=== PATIENT | female | born 1965 | race African-American/Black ===

== ENCOUNTER 2019-10-07 17:59 | Observation (INO) | payer BC ==
[2019-10-07 18:27] LABS: #Basophils 0.1 thou/uL (0.0-0.2); #Eosinphils 0.2 thou/uL (0.0-0.7); #Lymphocytes 3.2 thou/uL (1.20-3.40); #Monocytes 0.7 thou/uL (0.11-0.59); #Neutrophils 5.8 thou/uL (1.40-6.50); %Basophils 1.2 % (0.0-1.0); %Eosinophils 1.9 % (0.0-10.0); %Monocytes 7.2 % (0.0-10.0); %Neutrophils 57.8 % (42.0-75.0); Mean Corpuscular HGB CONC 33.2 g/dL (32.0-36.0); Mean Corpuscular Hemoglobin 26.8 pg (27.0-31.0); Mean Corpuscular Volume 80.9 fL (78.0-98.0); Platelet Count 306 thou/uL (130-400); RBC Distribution Width 14.6 % (11.5-14.5); Red Blood Cell (RBC) Count 5.21 mill/uL (4.20-5.40)
--- NOTE | 2019-10-07 18:36 | CT ---
BRAIN CT WITHOUT IV CONTRAST: 10/07/19 HISTORY: Right sided facial numbness and right arm numbness, level II stroke. FINDINGS: No focal mass or midline shift. No intra or extra-axial hemorrhage. Sinuses and mastoids are clear. IMPRESSION: No acute intracranial process. Findings discussed with Dr. Menchaca in the Emergency Room at 6:30 p.m. Code CR POS: [facility]
[2019-10-07 18:46] LABS: Anion Gap 10 mmol/L (10-20); BUN (Urea Nitrogen) 14 mg/dL (9.8-20.1); Calc. Creatinine Clearance 0 mL/min (70-130); Calcium 9.5 mg/dL (7.8-10.44); Carbon Dioxide 27 mmol/L (22-29); Chloride 108 mmol/L (98-107); Estimated GFR-MDRD 77; Glucose 88 mg/dL (70-105); Potassium 4.4 mmol/L (3.5-5.1); Sodium 141 mmol/L (136-145)
[2019-10-07] MEDS ORDERED: Aspirin 325 MG TAB ONE (22:06)
[2019-10-07] MEDS ORDERED: Acetaminophen 650 MG Suppository PR PRN (23:37)
[2019-10-07] MEDS ORDERED: Acetaminophen 325 MG TAB PO PRN (23:37)
[2019-10-07 23:39] VITALS: BMI 39.6
--- NOTE | 2019-10-08 00:25 | HP ---
TIME OF ASSESSMENT: 2200 hours. CHIEF COMPLAINT: Right-sided facial numbness and right upper extremity numbness with weakness. HISTORY OF PRESENT ILLNESS: Ms. Doty is a 54-year-old woman, who presents to the emergency department after noting persistent numbness and weakness in her right upper extremity as well as right facial numbness and tingling. The patient states that this started around 11:00 a.m. and persisted throughout the day. She states she was having difficulty holding the string well with both arms due to heaviness and weakness in her right arm and therefore drove with her left hand only. She has noted slight improvement with the numbness and tingling to the right side of her face. Denies any slurred speech. No vision changes, headaches or dizziness. Denies any right lower extremity weakness, numbness, or tingling. States she felt discomfort with contracture in her right index finger. States she had what felt like a charley horse go up through right arm. Discomfort settled but she continued to have dull sensation to the entire right upper extremity. Denies any pain or trauma to her right shoulder or arm. Denies any distant neck pain. States she has never had anything like this before, but concerned over strong family history of strokes in her family. ED COURSE: In the emergency department, she underwent laboratory studies that showed a normal full blood count. Sodium 141, potassium 4.4, BUN 14, creatinine 0.91, GFR 77, glucose 88. Troponin negative. Calcium 9.5. She had a CT of the head done, which showed no acute intracranial process. She had an EKG done showing normal sinus rhythm with a heart rate of 79. The patient admitted for further CVA workup. She was given 325 mg of aspirin in the emergency department. PAST MEDICAL HISTORY: 1. Hypertension. 2. History of anxiety attack in the past. PAST SURGICAL HISTORY: Tubal ligation. SOCIAL HISTORY: The patient denies any tobacco use. Reports occasional alcohol consumption. Denies any drug use. ALLERGIES: NO KNOWN DRUG ALLERGIES. CURRENT MEDICATIONS: Amlodipine 5 mg p.o. b.i.d. PHYSICAL EXAMINATION: GENERAL: The patient appears well developed, well nourished, in no acute distress. VITAL SIGNS: Temperature 98, pulse 67, blood pressure 135/90, respirations 17, O2 saturation 100% on room air. HEENT: Normocephalic and atraumatic. Pupils equal, round, and reactive to light. Sclerae are anicteric. Oropharynx is clear. Extraocular movements intact. NECK: Supple. LUNGS: Clear to auscultation bilaterally without any wheezes, rales, or rhonchi. CARDIAC: Regular rate and rhythm. ABDOMEN: Soft, nontender, and nondistended. Normoactive bowel sounds present. No guarding or rigidity. No renal angle tenderness. EXTREMITIES: No lower leg swelling or edema. NEUROLOGIC: Alert and oriented x3. Facial movements normal. However, she does have reduced sensation on the right side of her face. Speech normal. No tongue deviation. Right upper extremity notable for reduced sensation from the hand all way up to the mid upper arm. Power 4/5 in the right extremity compared to 5/5 in the left upper extremity. Hand distance education director strength minimally reduced in the right hand. Full range of motion at right shoulder joint. No gait disturbances. Lower extremities with normal power and sensation. INVESTIGATIONS: As mentioned above in HPI. IMPRESSION AND PLAN: Ms. Doty is a 54-year-old woman, who is being admitted for management of the following. 1. Cerebrovascular accident rule out. The patient remains symptomatic, though it is slightly improved from earlier today. We will obtain CT angiogram of the head and neck since she is still symptomatic. We will obtain an echo and an MRI. Lipid panel with morning labs. We will continue aspirin 325 mg daily. Consultation placed to neuro: We will continue to monitor the patient. 2. Hypertension. Monitor blood pressure and reconcile home medications once verified. 3. Gastrointestinal prophylaxis with famotidine. 4. Deep venous thrombosis prophylaxis with mechanical SCDs. 5. Code status full. Surrogate decision maker is her son, Vadim Doty. Case was discussed with attending, who agrees upon care as described above. Job ID: [id number]
[2019-10-08 05:52] LABS: Cardiac Risk 3.4 (Less than 4.5)
--- NOTE | 2019-10-08 07:20 | PDOC.HOSPP ---
- Subjective Encounter Date: 10/08/19 Encounter Time: 15:30 Subjective: Patient with resolution of all weakness and numbness except a bit at the fingertips of the right hand. No other complaints. - Objective Vital Signs & Weight: Vital Signs (12 hours) Temp Pulse Resp BP Pulse Ox 10/08/19 03:52 97.4 F L 63 20 139/100 H 99 10/07/19 23:58 97.4 F L 62 20 143/70 H 100 Weight Weight 245 lb 4.8 oz I&O: 10/07/19 10/08/19 10/09/19 06:59 06:59 06:59 Intake Total 600 Balance 600 Result Diagrams: 10/07/19 18:16 10/07/19 18:16 Additional Labs: Accuchecks 10/07/19 18:22 POC Glucose 82 Hospitalist ROS - Review of Systems Constitutional: denies: fever, chills Respiratory: denies: cough, shortness of breath Cardiovascular: denies: chest pain, palpitations Gastrointestinal: denies: nausea, vomiting Neurological: reports: numbness. denies: weakness - Exam General Appearance: NAD, awake alert ENT: moist mucosa Heart: RRR, no murmur, no gallops, no rubs Respiratory: CTAB, no wheezes, no rales, no ronchi Gastrointestinal: soft, non-tender, normal bowel sounds Neurological: cranial nerve grossly intact, no weakness, no focal deficits Musculoskeletal: normal tone, normal strength Psychiatric: normal affect, normal behavior, A&O x 3 Hosp A/P (1) Weakness of right upper extremity Code(s): R29.898 - OTH SYMPTOMS AND SIGNS INVOLVING THE MUSCULOSKELETAL SYSTEM Status: Acute (2) Right facial numbness Code(s): R20.0 - ANESTHESIA OF SKIN Status: Acute (3) HTN (hypertension) Code(s): I10 - ESSENTIAL (PRIMARY) HYPERTENSION Status: Chronic Qualifiers: Hypertension type: essential hypertension Qualified Code(s): I10 - Essential (primary) hypertension (4) Anxiety Code(s): F41.9 - ANXIETY DISORDER, UNSPECIFIED Status: Chronic - Plan CTA head and neck negative MRI negative ECHO with mild diastolic dysfunction, LV thickening from HTN Started on ASA and Atorvastatin Will d/c home, f/u PCP in 1 month GI Proph: Pepcid DVT Proph: SCDs
[2019-10-08] MEDS ORDERED: Aspirin 325 mg Enteric Coated Tablet PO SCH (09:00)
[2019-10-08] MEDS ORDERED: Famotidine/PF 20 mg/2ml Vial SLOW IVP SCH (09:00)
[2019-10-08] MEDS ORDERED: Iopamidol 370 76% 100 ML VIAL ONE (09:34)
--- NOTE | 2019-10-08 09:54 | CT ---
CT ANGIOGRAM OF THE HEAD CT ANGIOGRAM OF THE NECK: DATE: 10/08/2019. COMPARISON: None available. HISTORY: Numbness, weakness, level II stroke on 10/07/2019. TECHNIQUE: Axial CT imaging at 5 mm intervals from vertex through the skull base without contrast. Then, follow ing the intravenous administration of IV contrast, axial CT imaging at 1.25 mm intervals from lung ap ices through vertex with 3D reformatted imaging including coronal and sagittal reformatted images. FINDINGS: The noncontrast-enhanced head CT demonstrates no intracranial hemorrhage, midline shift, mass effect, or ventricular enlargement. The visualized paranasal sinuses and mastoid air cells are well aerated . The visualized lung apices are unremarkable. The origin of the subclavian artery, common carotid artery, and vertebral artery appears unremarkable bilaterally. On the basis of NASCET criteria, there is no hemodynamically significant stenosis involving the commo n carotid artery or the internal carotid artery on either side. There is calcified plaque at the carly gin of the internal carotid artery on the right. The vertebral arteries appear unremarkable. The retroantral fat, parapharyngeal fat, parotid glands, submandibular glands, and tonsillar appears appear grossly unremarkable. The epiglottis and preepiglottic fat, hyoid bone, thyroid cartilage, cr icoid cartilage, and level of glottis appear unremarkable. No lymphadenopathy is noted within the ne ck. The basilar artery and its branches appear patent. No sacular aneurysm, high-grade stenosis, or vasc ular occlusion is seen involving the posterior circulation. The bifurcation of the internal carotid artery, the A1 segment, the distal [place] branches, the M1 segme nt, and the MCA bifurcation appears grossly unremarkable. Distal MCA branches appear grossly unremar kable. No high-grade stenosis, vascular occlusion or sacular aneurysm is seen involving the anterior circulation. Dural venous sinuses appear grossly unremarkable. Review of the osseous structures de monstrates no worrisome lytic or blastic bone lesion. There is degenerative change involving the [place] antoaxial interspace. There is also disk space narrowing with anterior osteophyte formation and disk -osteophyte complex formation at C4-5 and C5-6. IMPRESSION: 1. On the basis of NASCET criteria, there is no hemodynamically significant stenosis involving the a rterial structures of the neck. 2. Noncontrast-enhanced head CT demonstrates no intracranial hemorrhage. 3. No sacular aneurysm, vascular occlusion, or high-grade stenosis is seen involving the intracrania l arterial structures. POS: [facility]
--- NOTE | 2019-10-08 09:59 | MRI ---
BRAIN MRI WITHOUT CONTRAST: DATE: 10/08/2019. COMPARISON: None. HISTORY: Right-sided facial numbness and right arm numbness. TECHNIQUE: Multiplanar, multisequence MR imaging of the brain is obtained without contrast. FINDINGS: The diffusion weighted imaging demonstrates no evidence for acute infarction. The axial gradient ech o imaging demonstrates no evidence for intracranial hemorrhage. There are a few subtle foci of incre ased T2 and FLAIR signal within the subcortical white matter of the right frontal region, the deep wh ite matter of the left frontal region, and the ventral aspect of the renate suggesting a mild degree of small-vessel disease. Regional bone marrow signal intensity appears within normal limits. Paranasa l sinuses and mastoid air cells appear grossly unremarkable. Arterial flow voids at the axial level of the skull base appear unremarkable on the T2 weighted imaging. IMPRESSION: No acute findings. POS: [facility]
[2019-10-08 12:01] VITALS: TEMP 98.1
--- NOTE | 2019-10-08 12:26 | CON ---
NEUROLOGY CONSULTATION DATE OF CONSULTATION: 10/08/2019 REASON FOR CONSULTATION: Rule out stroke, right facial numbness, and right upper extremity numbness and weakness. HISTORY OF PRESENT ILLNESS: Ms. Doty is a 54-year-old female who presented to the emergency department because of focal facial paresthesias on the right side of the face and weakness and paresthesias in the right upper extremity. According to the patient, the symptoms started around 11 a.m. yesterday and persisted throughout the day. She denies nausea, vomiting, headache, chest pain, dizziness, vertigo, abnormal body movements, loss of vision or blurred vision or loss of consciousness associated with this episode. Her symptoms are now improved but is still complaining of tingling and numbness. In the emergency room, labs were done, which were essentially unremarkable. The initial head CT was negative for acute intracranial pathology. She was given aspirin and was transferred to the stroke floor for further evaluation. REVIEW OF SYSTEMS: All 10 systems were reviewed and were negative except the pertinent positives and negatives mentioned in the HPI. PAST MEDICAL HISTORY: Hypertension, anxiety. PAST SURGICAL HISTORY: Tubal ligation. SOCIAL HISTORY: The patient denies tobacco or alcohol use. FAMILY HISTORY: No significant family history. ALLERGIES: NO KNOWN DRUG ALLERGIES. CURRENT MEDICATION: Amlodipine 5 mg daily. - Objective Vital Signs & Weight: Vital Signs (12 hours) Temp Pulse Resp BP Pulse Ox 10/08/19 03:52 97.4 F L 63 20 139/100 H 99 10/07/19 23:58 97.4 F L 62 20 143/70 H 100 Weight Weight 245 lb 4.8 oz I&O: 10/07/19 10/08/19 10/09/19 06:59 06:59 06:59 Intake Total 600 Balance 600 Result Diagrams: 10/07/19 18:16 10/07/19 18:16 Additional Labs: Accuchecks 10/07/19 18:22 POC Glucose 82 PHYSICAL EXAMINATION: GENERAL: Alert, awake female, in no acute distress. HEENT: Normocephalic and atraumatic. NECK: Supple. CV: Regular rate and rhythm. CHEST: Clear. ABDOMEN: Soft. NEUROLOGIC: Mental status, the patient is alert and oriented to person, place, and time. Speech is clear. Recent and remote memory intact. Fund of knowledge is appropriate. Cranial nerves 2 through 12 intact except 5. Decreased sensation to light touch on the right side of the face in the V1, V2, and V3 distribution. Motor, muscle tone and bulk are normal. Strength 5/5 bilaterally except right upper extremity 4+/5. Sensory, decreased sensation to touch in the right upper extremity. Cerebellar, finger-nose testing intact. Gait deferred due to patient's safety reasons. LABORATORY DATA: I reviewed the MRI of the brain which was negative for acute intracranial pathology. I also reviewed the CT of the head and neck, which was unremarkable. ASSESSMENT AND PLAN: Ms. Doty is a 54-year-old woman admitted to rule out cerebrovascular accident, most likely transient ischemic attack since she has risk factors. MRI of the brain reviewed which was negative for acute intracranial process. CT angiogram of the head and neck reviewed which were negative for hemodynamically significant stenosis. Neuro checks every 4 hours. Strict control of the blood pressure and blood glucose, continue home medications, neuro checks every 4 hours. Continue aspirin, recommend high-intensity statin for secondary stroke prevention. Check TSH, fasting lipid panel, hemoglobin A1c and vitamin B12, and folic acid. Telemetry, 2D echo to evaluate for left ventricular ejection fraction and rule out thrombus or PFO. Continue medical management per primary team. Plan discussed with the patient. We will continue to follow. Thank you for the consult. Job ID: [id number] [email or web address]
[2019-10-08 15:59] VITALS: BP 135/66
[2019-10-08] MEDS ORDERED: Atorvastatin Calcium 40 MG TAB PO SCH (21:00)
--- NOTE | 2019-10-09 02:09 | DIS ---
DATE OF ADMISSION: 10/07/2019 DATE OF DISCHARGE: 10/08/2019 REASON FOR ADMISSION: Right-sided facial and upper extremity numbness and right upper extremity weakness. DIAGNOSES AT DISCHARGE: 1. Transient ischemic attack with numbness and weakness, resolved. 2. Hypertension. 3. Anxiety. 4. Hyperlipidemia. PROCEDURES: 1. CT of the brain without contrast showing no acute abnormalities. 2. MRI of the brain showing no acute stroke or other abnormalities. 3. CT angio of the head and neck showing no evidence for carotid or intracranial vessel occlusion or narrowing. 4. Echocardiogram showing ejection fraction of 55% to 60%. Grade 1/3 diastolic dysfunction and mild concentric left ventricular hypertrophy. CONSULTATION: Neurology, Dr. Diaz. SUMMARY OF HOSPITAL COURSE: This is a 54-year-old female who developed right-sided facial numbness and right upper extremity numbness and weakness on the morning of admission. It persisted throughout the day. She denied any other neurologic symptoms. Eventually came into the emergency room. She was found to be mildly hypertensive. Otherwise, her exam was normal. The patient was put in observation in the hospital. She was given aspirin and atorvastatin. She did have a fasting lipid profile, which showed an elevated total cholesterol, although the HDL was also elevated. The patient had a CT, MRI and CTA that were all negative. She had an echocardiogram with above results and Dr. Diaz neurologist did evaluate her. She had resolution of her symptoms except for a little bit of tingling in her fingertips of her right hand. By the time of discharge, she was diagnosed with a TIA and is being discharged home. DISCHARGE MANAGEMENT: Discharge home. ACTIVITY: As tolerated. DIET: Healthy heart diet. MEDICATIONS: 1. Aspirin 325 mg daily, 30 tablets dispensed. 2. Atorvastatin 40 mg daily, 30 tablets dispensed. 3. Continue lisinopril 5 mg daily. FOLLOWUP: The patient is to follow up with her primary care physician in 3 to 4 weeks. Job ID: [id number]
== END 2019-10-08 16:30 | disposition home or self-care (01) ==
LOC: ERS 17:59 → 2SE 22:24
PROVIDERS: ADMIT Internal Medicine; ATTEND Internal Medicine
DX: G89.4 Chronic pain syndrome (principal); I10 Essential (primary) hypertension; E78.5 Hyperlipidemia, unspecified; F41.9 Anxiety disorder, unspecified; Z79.899 Other long term (current) drug therapy
CPT/HCPCS: 36415; 36416; 70450; 70496; 70498; 70551; 80048; 80061; 84484; 85025; 93005; 93306; 96374; G0378; Q9967; S0028